=== PATIENT | male | born 1950 | race Caucasian/White ===

== ENCOUNTER 2021-08-04 04:30 | Emergency (ER) | payer SELFPAY ==
[~2021-08-04] VITALS: Ht 177.8 cm; Wt 92.6 kg
[~2021-08-04 04:30] MED LIST: ACET-9529 PO; LACT1.4C PO; LEVO750T2 PO
[2021-08-04 04:46] VITALS: BP 166/103
--- NOTE | 2021-08-04 04:50 | NUR ---
ER MD DR DERRICK ALEJANDRE PT, EKG DONE.
[2021-08-04] MEDS ORDERED: CLONIDINE HYDROCHLORIDE 0.1 MG TAB PO ONE (04:55)
[2021-08-04] MEDS ORDERED: TRANEXAMIC ACID 1,000 MG/10 ML VIAL MC ONE (05:00)
--- NOTE | 2021-08-04 05:08 | NUR ---
Dr. Bartlett examining patient.
[2021-08-04] MEDS ORDERED: CLONIDINE HYDROCHLORIDE 0.1 MG TAB ONE (06:34)
[2021-08-04] MEDS ORDERED: TRANEXAMIC ACID 1,000 MG/10 ML VIAL ONE (06:34)
--- NOTE | 2021-08-04 06:38 | NUR ---
PO MEDS GIVE NADR AT THIS TIME, NO EPISTAXIS AT THIS TIME. PT AAOX4, N PAIN, PERRLA.
[2021-08-04] MEDS ORDERED: SILVER NITRATE APPLICATOR 1 EA SWAB TP ONE (07:00)
[2021-08-04] MEDS ORDERED: BACI1PAC6 TP (07:14)
[2021-08-04] MEDS ORDERED: OXYM20SP1 NS (07:14)
[2021-08-04 07:59] VITALS: BP 100/75
--- NOTE | 2021-08-04 08:07 | NUR ---
Patient discharged with v/s stable. Written and verbal after care instructions given and explained. Patient alert, oriented and verbalized understanding of instructions. Ambulatory with steady gait. All questions addressed prior to discharge. ID band removed. Patient advised to follow up with PMD. Rx of BACITRACIN, HCL AFRIN given. Patient educated on indication of medication including possible reaction and side effects. Opportunity to ask questions provided and answered.
== END 2021-08-04 07:59 | disposition home or self-care (01) ==
LOC: MED 04:30
DX: R04.0 Epistaxis (principal); R03.0 Elevated blood-pressure reading, without diagnosis of hypertension
CPT/HCPCS: 30901; 99284; J3490

== ENCOUNTER 2021-08-06 03:12 | Emergency (ER) | payer MEDICAID ==
[~2021-08-06] VITALS: Ht 170.2 cm; Wt 90.7 kg
[~2021-08-06 03:12] MED LIST changes: -ACET-9529 PO; +BACI1PAC6 TP; -LACT1.4C PO; -LEVO750T2 PO; +OXYM20SP1 NS
[2021-08-06 03:19] VITALS: BP 131/81
--- NOTE | 2021-08-06 03:22 | NUR ---
TO LOBBY A/W BED AMBULATORY
--- NOTE | 2021-08-06 03:34 | NUR ---
SEEN AND EXAMINED BY TODD
[2021-08-06] MEDS ORDERED: PHENYLEPHRINE 0.5% 15 ML BTL NS ONE (03:45)
[2021-08-06] MEDS ORDERED: PHENYLEPHRINE 1% 15 ML BTL NS ONE (03:56)
[2021-08-06] MEDS ORDERED: ACET-8386 PO (04:45)
[2021-08-06] MEDS ORDERED: IBUP-2213 PO (04:45)
[2021-08-06] MEDS ORDERED: AMOX-1000 PO (04:45)
[2021-08-06 04:55] VITALS: BP 131/81
--- NOTE | 2021-08-06 04:55 | NUR ---
Patient discharged with v/s stable. Written and verbal after care instructions given and explained. Patient alert, oriented and verbalized understanding of instructions. Ambulatory with steady gait. All questions addressed prior to discharge. ID band removed. Patient advised to follow up with PMD. Rx of motrin, norco, amoxicillin given. Patient educated on indication of medication including possible reaction and side effects. Opportunity to ask questions provided and answered.
== END 2021-08-06 04:55 | disposition home or self-care (01) ==
LOC: MED 03:12
DX: R04.0 Epistaxis (principal); R42 Dizziness and giddiness
CPT/HCPCS: 30901; 99284

== ENCOUNTER 2021-08-06 22:15 | Emergency (ER) | payer MEDICAID ==
[~2021-08-06] VITALS: Ht 177.8 cm; Wt 90.7 kg
[~2021-08-06 22:15] MED LIST changes: +ACET-8386 PO; +AMOX-1000 PO; +IBUP-2213 PO
[2021-08-06 22:35] VITALS: BP 150/90
--- NOTE | 2021-08-06 22:38 | NUR ---
to lobby a/w bed ambulatory
--- NOTE | 2021-08-06 23:25 | NUR ---
SEEN AND EXAMINED BY TODD
[2021-08-06] MEDS ORDERED: PHENYLEPHRINE 1% 15 ML BTL NS ONE (23:59)
[2021-08-07] MEDS ORDERED: PHENYLEPHRINE 1% 15 ML BTL NS ONE
[2021-08-07 00:07] VITALS: BP 150/90
--- NOTE | 2021-08-07 00:07 | NUR ---
Patient discharged with v/s stable. Written and verbal after care instructions given and explained. Patient verbalized understanding. Ambulatory with steady gait. All questions addressed prior to discharge. Advised to follow up with PMD.
== END 2021-08-07 00:07 | disposition home or self-care (01) ==
LOC: MED 22:15
DX: R04.0 Epistaxis (principal); R42 Dizziness and giddiness; Z79.899 Other long term (current) drug therapy
CPT/HCPCS: 30901; 99284

== ENCOUNTER 2023-10-20 11:49 | Emergency (ER) | payer MEDICAID ==
[~2023-10-20] VITALS: Ht 177.8 cm; Wt 99.8 kg
[~2023-10-20 11:49] MED LIST changes: -ACET-8386 PO; +ACET-8905 PO; +BACI-418 TP; -BACI1PAC6 TP
[2023-10-20 11:58] VITALS: BP 136/80; PULSE 91; RESP 18; TEMP 98.8; O2SAT 96
[2023-10-20 12:20] LABS: APPEARANCE,URINE CLEAR (CLEAR); BILIRUBIN,URINE NEGATIVE (NEGATIVE); BLOOD, URINE NEGATIVE (NEGATIVE); COLOR,URINE YELLOW (YELLOW); LEUKOCYTE ESTERASE ,URINE 1+ (NEGATIVE); NITRITE, URINE POSITIVE (NEGATIVE); PROTEIN,URINE NEGATIVE (NEGATIVE); UGLUCOSE NEGATIVE (NEGATIVE); UROBILINOGEN,URINE 0.2 EU/dL (0.2 - 1)
[2023-10-20 12:27] LABS: RBC,URINE 0-5 /HPF (0-5)
[2023-10-20 12:31] LABS: BACTERIA,URINE >30 (MANY) /HPF (None Seen); MUCUS,URINE None Seen /LPF (None Seen); SQUAMOUS EPITHELIAL CELL,UR 0-3 (FEW) /LPF (0-3 (FEW))
[2023-10-20] MEDS ORDERED: IBUP-2213 PO ×2 (13:50→16:30)
[2023-10-20] MEDS ORDERED: CIPR500T4 PO ×2 (13:50→16:30)
[2023-10-20] MEDS: KETOROLAC 30 MG/ML VIAL IM ONE (14:06)
[2023-10-20 14:20] VITALS: BP 136/80; PULSE 91; RESP 18; TEMP 98.8; O2SAT 96
== END 2023-10-20 14:20 | disposition home or self-care (01) ==
LOC: MED 11:49
DX: N45.3 Epididymo-orchitis (principal); N39.0 Urinary tract infection, site not specified; I86.1 Scrotal varices; Z79.1 Long term (current) use of non-steroidal anti-inflammatories (NSAID); Z79.899 Other long term (current) drug therapy
CPT/HCPCS: 76870; 81001; 87086; 87186; 96372; 99285; J1885; Q0092

== ENCOUNTER 2023-11-06 12:03 | Emergency (ER) | payer MEDICAID ==
[~2023-11-06] VITALS: Ht 170.2 cm; Wt 93.2 kg
[~2023-11-06 12:03] MED LIST changes: +CIPR500T4 PO
[2023-11-06 12:27] VITALS: BP 116/64; PULSE 85; RESP 18; TEMP 98.8; O2SAT 96
[2023-11-06 14:45] LABS: APPEARANCE,URINE CLEAR (CLEAR); BILIRUBIN,URINE NEGATIVE (NEGATIVE); BLOOD, URINE NEGATIVE (NEGATIVE); COLOR,URINE YELLOW (YELLOW); LEUKOCYTE ESTERASE ,URINE NEGATIVE (NEGATIVE); NITRITE, URINE NEGATIVE (NEGATIVE); PROTEIN,URINE NEGATIVE (NEGATIVE); UGLUCOSE NEGATIVE (NEGATIVE); UROBILINOGEN,URINE 0.2 EU/dL (0.2 - 1)
== END 2023-11-06 15:20 | disposition home or self-care (01) ==
LOC: MED 12:03
DX: R30.0 Dysuria (principal); I10 Essential (primary) hypertension; Z79.1 Long term (current) use of non-steroidal anti-inflammatories (NSAID); Z79.899 Other long term (current) drug therapy
CPT/HCPCS: 81003; 99283